=== PATIENT | female | born 1945 | race Caucasian/White ===

== ENCOUNTER → 2017-12-07 | Outpatient (CLI) | payer OTHER ==
[~2017-12-07] MED LIST: WELLBUTRIN XL300 MG
== END | disposition home or self-care (01) ==
LOC: NUCLEAR 12:41
DX: M81.0 Age-related osteoporosis without current pathological fracture (principal)

== ENCOUNTER 2017-12-10 10:32 | Outpatient (CLI) | payer OTHER | END 2017-12-10 16:49 | disposition home or self-care (01) | LOC: NUCLEAR 10:32 | DX: I87.2 Venous insufficiency (chronic) (peripheral) (principal) ==

== ENCOUNTER 2019-06-15 09:36 | Outpatient (CLI) | payer OTHER | END 2019-06-15 09:40 | disposition home or self-care (01) | LOC: MAMO-SONO 09:36 | DX: M12.841 Other specific arthropathies, not elsewhere classified, right hand (principal); M12.842 Other specific arthropathies, not elsewhere classified, left hand; Z12.31 Encounter for screening mammogram for malignant neoplasm of breast; N60.11 Diffuse cystic mastopathy of right breast ==

== ENCOUNTER → 2019-06-28 | Outpatient (CLI) | payer OTHER | END | disposition home or self-care (01) | LOC: NUCLEAR 06-15 10:00 | DX: I87.2 Venous insufficiency (chronic) (peripheral) (principal) ==

== ENCOUNTER 2020-10-22 11:01 | Outpatient (CLI) | payer OTHER | END 2020-10-22 11:08 | disposition home or self-care (01) | LOC: MAMO-SONO 11:01 | PROVIDERS: ATTEND Specialist | DX: Z12.31 Encounter for screening mammogram for malignant neoplasm of breast (principal); N60.11 Diffuse cystic mastopathy of right breast; N60.12 Diffuse cystic mastopathy of left breast ==

== ENCOUNTER 2021-03-06 09:17 | Outpatient (CLI) | payer OTHER | END 2021-03-06 09:18 | disposition home or self-care (01) | LOC: NUCLEAR 09:17 | PROVIDERS: ATTEND Internal Medicine Cardiovascular Disease | DX: I87.2 Venous insufficiency (chronic) (peripheral) (principal) ==

== ENCOUNTER 2021-11-13 10:21 | Outpatient (CLI) | payer OTHER | END 2021-11-13 10:26 | disposition home or self-care (01) | LOC: MAMO-SONO 10:21 | PROVIDERS: ATTEND Internal Medicine Cardiovascular Disease | DX: N63.11 Unspecified lump in the right breast, upper outer quadrant (principal); Z12.31 Encounter for screening mammogram for malignant neoplasm of breast ==

== ENCOUNTER 2022-03-05 10:02 | Outpatient (CLI) | payer OTHER | END 2022-03-05 10:03 | disposition home or self-care (01) | LOC: NUCLEAR 10:02 | PROVIDERS: ATTEND Internal Medicine Cardiovascular Disease | DX: M81.0 Age-related osteoporosis without current pathological fracture (principal); E55.9 Vitamin D deficiency, unspecified ==

== ENCOUNTER 2022-03-12 08:52 | Outpatient (CLI) | payer OTHER | END 2022-03-12 08:53 | disposition home or self-care (01) | LOC: NUCLEAR 08:52 | PROVIDERS: ATTEND Internal Medicine Cardiovascular Disease | DX: I87.2 Venous insufficiency (chronic) (peripheral) (principal) ==

== ENCOUNTER 2022-12-24 09:00 | Outpatient (CLI) | payer OTHER | END 2022-12-25 14:22 | disposition home or self-care (01) | LOC: MAMO-SONO 09:00 | PROVIDERS: ATTEND Internal Medicine Cardiovascular Disease | DX: Z12.31 Encounter for screening mammogram for malignant neoplasm of breast (principal); N63.11 Unspecified lump in the right breast, upper outer quadrant ==

== ENCOUNTER 2023-05-21 11:20 | Outpatient (CLI) | payer OTHER | END 2023-05-21 11:28 | disposition home or self-care (01) | LOC: SONOGRAMA 11:20 | PROVIDERS: ATTEND Obstetrics & Gynecology | DX: N95.0 Postmenopausal bleeding (principal) ==

== ENCOUNTER 2023-07-06 06:27 | Outpatient (CLI) | payer OTHER ==
[2023-07-06 07:44] LABS: CREATININE SERUM 0.64 mg/dL (0.55-1.02); GFR 89.74
== END 2023-07-06 06:28 | disposition home or self-care (01) ==
LOC: LAB 06:27
PROVIDERS: ATTEND Radiology Diagnostic Radiology
DX: C54.1 Malignant neoplasm of endometrium (principal)

== ENCOUNTER 2023-07-08 07:45 | Outpatient (CLI) | payer OTHER | END 2023-07-08 07:57 | disposition home or self-care (01) | LOC: TOM 07:45 | DX: R07.9 Chest pain, unspecified (principal); R10.9 Unspecified abdominal pain; R10.2 Pelvic and perineal pain | CPT/HCPCS: 71260; 74177; Q9965 ==

== ENCOUNTER 2023-08-01 07:30 | Outpatient (CLI) | payer OTHER ==
[2023-08-01 09:25] LABS: HEMATOCRIT 39.1 % (36.0-45.00); MEAN CELL VOLUME 88.3 fL (80.00-100.00); MEAN CORPUSCULAR HEMOGLOBIN 29.4 pg (27.00-32.0); MEAN CORPUSCULAR HGB CONC 33.3 g/dl (32.0-36.0); PLATELET COUNT 452 K/uL (150-450); RED BLOOD COUNT 4.43 M/uL (4.00-6.00); RED CELL DISTRIBUTION WIDTH 13.6 % (11.5-14.5)
[2023-08-01 09:48] LABS: ALBUMIN 3.3 gm/dL (3.4-5.0); BILIRUBIN TOTAL 0.5 mg/dL (0.3-1.2); CREATININE SERUM 0.62 mg/dL (0.55-1.02); GFR 93.09; GLOBULINA 3.2 G/DL (2.4-3.5); POTASSIUM 3.95 mEq/L (3.5-5.1); TOTAL PROTEIN 6.5 gm/dL (6.4-8.2)
== END 2023-08-01 07:32 | disposition home or self-care (01) ==
LOC: LAB 07:30
DX: Z01.812 Encounter for preprocedural laboratory examination (principal); D68.8 Other specified coagulation defects; N39.0 Urinary tract infection, site not specified; C54.1 Malignant neoplasm of endometrium; G89.3 Neoplasm related pain (acute) (chronic)

== ENCOUNTER 2023-09-01 06:44 | Outpatient (CLI) | payer OTHER ==
[2023-09-01 07:58] LABS: HEMATOCRIT 38.3 % (36.0-45.00); HEMOGLOBIN 12.6 g/dL (12.0-15.00); MEAN CELL VOLUME 87.9 fL (80.00-100.00); MEAN CORPUSCULAR HEMOGLOBIN 28.9 pg (27.00-32.0); MEAN CORPUSCULAR HGB CONC 32.8 g/dl (32.0-36.0); PLATELET COUNT 230 K/uL (150-450); RED BLOOD COUNT 4.36 M/uL (4.00-6.00); RED CELL DISTRIBUTION WIDTH 14.8 % (11.5-14.5)
[2023-09-01 08:22] LABS: ALBUMIN 3.7 gm/dL (3.4-5.0); BILIRUBIN TOTAL 0.6 mg/dL (0.3-1.2); CALCIUM 9.2 mg/dL (8.5-10.1); CREATININE SERUM 0.67 mg/dL (0.55-1.02); GFR 85.12; GLOBULINA 3.3 G/DL (2.4-3.5); POTASSIUM 4.25 mEq/L (3.5-5.1)
== END 2023-09-01 06:45 | disposition home or self-care (01) ==
LOC: LAB 06:44
DX: R97.8 Other abnormal tumor markers (principal); Z51.11 Encounter for antineoplastic chemotherapy; G89.3 Neoplasm related pain (acute) (chronic); C54.1 Malignant neoplasm of endometrium

== ENCOUNTER → 2023-09-08 06:39 | Outpatient (CLI) | payer OTHER ==
[2023-09-08 07:35] LABS: MEAN CELL VOLUME 87.5 fL (80.00-100.00); MEAN CORPUSCULAR HEMOGLOBIN 29.1 pg (27.00-32.0); MEAN CORPUSCULAR HGB CONC 33.2 g/dl (32.0-36.0); PLATELET COUNT 315 K/uL (150-450); RED BLOOD COUNT 4.46 M/uL (4.00-6.00); RED CELL DISTRIBUTION WIDTH 15.5 % (11.5-14.5)
[2023-09-08 08:02] LABS: ALBUMIN 3.7 gm/dL (3.4-5.0); BILIRUBIN TOTAL 0.61 mg/dL (0.3-1.2); CALCIUM 9.1 mg/dL (8.5-10.1); CREATININE SERUM 0.68 mg/dL (0.55-1.02); GFR 83.68; GLOBULINA 3.2 G/DL (2.4-3.5); POTASSIUM 3.96 mEq/L (3.5-5.1); TOTAL PROTEIN 6.9 gm/dL (6.4-8.2)
== END | disposition home or self-care (01) ==
LOC: LAB 06:39
PROVIDERS: ATTEND Obstetrics & Gynecology Gynecologic Oncology
DX: C54.1 Malignant neoplasm of endometrium (principal); Z51.11 Encounter for antineoplastic chemotherapy

== ENCOUNTER 2023-09-23 06:50 | Outpatient (CLI) | payer OTHER ==
[2023-09-23 07:41] LABS: HEMATOCRIT 35.9 % (36.0-45.00); MEAN CELL VOLUME 89.8 fL (80.00-100.00); MEAN CORPUSCULAR HGB CONC 33.4 g/dl (32.0-36.0); PLATELET COUNT 284 K/uL (150-450); RED CELL DISTRIBUTION WIDTH 15.2 % (11.5-14.5)
[2023-09-23 07:54] LABS: ALBUMIN 3.9 gm/dL (3.4-5.0); BILIRUBIN TOTAL 0.85 mg/dL (0.3-1.2); CREATININE SERUM 0.82 mg/dL (0.55-1.02); GFR 67.42; GLOBULINA 3.1 G/DL (2.4-3.5); POTASSIUM 3.51 mEq/L (3.5-5.1)
== END 2023-09-23 06:51 | disposition home or self-care (01) ==
LOC: LAB 06:50
PROVIDERS: ATTEND Obstetrics & Gynecology Gynecologic Oncology
DX: G89.3 Neoplasm related pain (acute) (chronic) (principal); Z51.11 Encounter for antineoplastic chemotherapy; R97.8 Other abnormal tumor markers; C54.1 Malignant neoplasm of endometrium

== ENCOUNTER 2023-10-11 10:40 | Emergency (ER) | payer OTHER ==
[~2023-10-11] VITALS: Ht 160 cm; Wt 49.9 kg
[2023-10-11] MEDS ORDERED: ONDANSETRON ODT8 MG PO (11:11)
[2023-10-11] MEDS ORDERED: VASOTEC5 MG PO (11:12)
[2023-10-11] MEDS ORDERED: MEGASE (11:13)
[2023-10-11] MEDS ORDERED: 0.9 % SODIUM CHLORIDE 1,000 ML IV STA (11:45)
[2023-10-11] MEDS ORDERED: MULTIVIT INFUSN ADULT K IV SCH (12:00)
[2023-10-11] MEDS ORDERED: RINGERS LACTATED IV SCH (12:00)
[2023-10-11 12:55] LABS: HEMATOCRIT 38.4 % (36.0-45.00); HEMOGLOBIN 13.1 g/dL (12.0-15.00); MEAN CELL VOLUME 88.8 fL (80.00-100.00); MEAN CORPUSCULAR HEMOGLOBIN 30.2 pg (27.00-32.0); PLATELET COUNT 196 K/uL (150-450); RED BLOOD COUNT 4.33 M/uL (4.00-6.00); RED CELL DISTRIBUTION WIDTH 16.1 % (11.5-14.5)
[2023-10-11 13:08] LABS: CALCIUM 9.5 mg/dL (8.5-10.1); CREATININE SERUM 1.19 mg/dL (0.55-1.02); GFR 43.76; POTASSIUM 3.15 mEq/L (3.5-5.1)
[2023-10-11 16:57] LABS: PH,URINE 5.5 (5.0-8.0); URINE APPEARANCE Cloudy; URINE BILIRRUBIN Negative (NEGATIVE); URINE BLOOD NHT; URINE COLOR Dark Yellow; URINE GLUCOSE Negative (NEGATIVE); URINE LEUKOCYTE Trace; URINE NITRATE Negative
[2023-10-11 17:01] LABS: URINE BACTERIA 472.4 uL (0.0-1933); URINE EPITHELIAL CELLS 45.9 uL (0.0-38.8); URINE RBC 23.2 uL (0.0-20.8); URINE WBC 53.1 uL (0.0-23.2)
[2023-10-11 17:07] LABS: URINE PROTEIN 100 (NEGATIVE)
== END 2023-10-11 22:22 | disposition home or self-care (01) ==
LOC: ER 10:40
PROVIDERS: General Practice
DX: T45.1X5A Adverse effect of antineoplastic and immunosuppressive drugs, initial encounter (principal); R53.1 Weakness; Z85.89 Personal history of malignant neoplasm of other organs and systems; Y92.89 Other specified places as the place of occurrence of the external cause; Z20.822 Contact with and (suspected) exposure to COVID-19
CPT/HCPCS: 36415; 71045; 93005; 96365; 96366; 99283; J3490; J7030

== ENCOUNTER → 2023-10-21 | Emergency (ER) | payer OTHER ==
[~2023-10-21] VITALS: Ht 162.6 cm; Wt 52.2 kg
[~2023-10-21] MED LIST changes: +CARBOPLATIN; +DEXAMETHAS10 MG/1 M1; +DIPHEDRYL25 M1; +FAMOtidine 10 MG/ML (4ML VIAL) IV STA; +KEYTRUDA100 MG/4 M IV; +MEGASE; +MULTIVIT INFUSN,ADULT 4,VIT K 10 ML in 0.9 % SODIUM CHLORIDE 1,000 ML IV ONE; +ONDANSETRON ODT8 MG PO; +PEPCID AC20 MG PO; +SODIUM CHLORIDE 0.45 % 1,000 ML IV STA; +VASOTEC5 MG PO
[2023-10-21 10:36] LABS: HEMATOCRIT 34.8 % (36.0-45.00); HEMOGLOBIN 11.9 g/dL (12.0-15.00); MEAN CORPUSCULAR HEMOGLOBIN 31.1 pg (27.00-32.0); MEAN CORPUSCULAR HGB CONC 34.2 g/dl (32.0-36.0); PLATELET COUNT 177 K/uL (150-450); RED BLOOD COUNT 3.82 M/uL (4.00-6.00); RED CELL DISTRIBUTION WIDTH 16.4 % (11.5-14.5)
[2023-10-21 11:01] LABS: ALBUMIN 3.6 gm/dL (3.4-5.0); BILIRUBIN TOTAL 1.16 mg/dL (0.3-1.2); BILIRUBIN,CONJUGATED 0.38 mg/dL (0.0-0.2); BILIRUBIN,UNCONJUGATED 0.78 mg/dL (0.0-0.6); CALCIUM 9.2 mg/dL (8.5-10.1); CREATININE SERUM 0.93 mg/dL (0.55-1.02); GFR 58.16; POTASSIUM 3.07 mEq/L (3.5-5.1); TOTAL PROTEIN 6.6 gm/dL (6.4-8.2)
[2023-10-21 15:19] LABS: PH,URINE 5.5 (5.0-8.0); URINE APPEARANCE Clear; URINE BILIRRUBIN Small (NEGATIVE); URINE BLOOD Negative; URINE COLOR Dark Yellow; URINE GLUCOSE Negative (NEGATIVE); URINE LEUKOCYTE Trace; URINE NITRATE Negative
[2023-10-21 15:20] LABS: URINE BACTERIA 98.2 uL (0.0-1933); URINE EPITHELIAL CELLS 48.5 uL (0.0-38.8); URINE RBC 17.3 uL (0.0-20.8); URINE WBC 36.4 uL (0.0-23.2)
[2023-10-21 15:42] LABS: URINE PROTEIN 100 (NEGATIVE)
[2023-10-21 15:43] LABS: URINE CRYSTALS FEW /HPF; URINE MUCUS MODERATE
== END | disposition home or self-care (01) ==
LOC: ER 09:21
PROVIDERS: General Practice
DX: E86.0 Dehydration (principal); R53.1 Weakness; T45.1X5A Adverse effect of antineoplastic and immunosuppressive drugs, initial encounter
CPT/HCPCS: 36415; 74177; 96365; 96366; 99284; J3490; J7030; Q9965

== ENCOUNTER 2023-12-10 12:46 | Outpatient (CLI) | payer OTHER ==
[~2023-12-10 12:46] MED LIST changes: -FAMOtidine 10 MG/ML (4ML VIAL) IV STA; -MULTIVIT INFUSN,ADULT 4,VIT K 10 ML in 0.9 % SODIUM CHLORIDE 1,000 ML IV ONE; -SODIUM CHLORIDE 0.45 % 1,000 ML IV STA
== END 2023-12-10 12:48 | disposition home or self-care (01) ==
LOC: RAD 12:46
DX: R07.9 Chest pain, unspecified (principal)